=== PATIENT | female | born 1965 | race Caucasian/White ===

== ENCOUNTER 2020-05-22 20:39 | Emergency (ER) | payer OTHER ==
[~2020-05-22] VITALS: Ht 162.6 cm; Wt 76.0 kg
[2020-05-22 20:49] VITALS: BP 144/79
--- NOTE | 2020-05-22 20:52 | NUR ---
CLARISA BAE EVALUATING PT IN TRIAGE ROOM.
--- NOTE | 2020-05-22 20:53 | NUR ---
PT AMBULTED TO BED 7 WITH STEADY GAIT
--- NOTE | 2020-05-22 21:00 | NUR ---
55 Y/O FEMALE C/O BLEEDING ON R SIDE OF MOUTH POST DENTAL PROCEDURE YESTERDAY. PT TAKING PRESBRIBED PENICILLIN. DENIES ANY PAIN. CLOT TO R SIDED JAW NOTED. VSS. MED HX: PRE DM2 RX: PENICLLIN NKA
[2020-05-22 21:22] VITALS: BP 144/79
--- NOTE | 2020-05-22 21:22 | NUR ---
Patient discharged with v/s stable. Written and verbal after care instructions given and explained. Patient verbalized understanding. Ambulatory with steady gait. ID Band Removed. All questions addressed prior to discharge. Advised to follow up with PMD.
== END 2020-05-22 21:22 | disposition home or self-care (01) ==
LOC: MED 20:39
DX: K91.840 Postprocedural hemorrhage of a digestive system organ or structure following a digestive system procedure (principal)
CPT/HCPCS: 99281

== ENCOUNTER 2020-07-20 14:23 | Emergency (ER) | payer OTHER, SELFPAY ==
[~2020-07-20] VITALS: Ht 162.6 cm; Wt 77.1 kg
[2020-07-20 14:55] VITALS: BP 95/49
--- NOTE | 2020-07-20 15:00 | NUR ---
Pt c/o n/v/d, chills, body aches since 07/14.Tested + for covid on 07/14. Denies SOB/chest pain medhx: denies
--- NOTE | 2020-07-20 16:44 | NUR ---
REPEATED BP 109/49, O2 SAT WITH AMB 98%.
[2020-07-20 17:36] VITALS: BP 109/49
--- NOTE | 2020-07-20 17:36 | NUR ---
Patient discharged with v/s stable. Written and verbal after care instructions given and explained. Patient alert, oriented and verbalized understanding of instructions. Ambulatory with steady gait. All questions addressed prior to discharge. ID band removed. Patient advised to follow up with PMD. Rx of PROMETHAZINE, AZITHROMYCIN & TYLENOL given. Patient educated on indication of medication including possible reaction and side effects. Opportunity to ask questions provided and answered.
[2020-07-23] MEDS ORDERED: METF500T PO ×2 (04:10→07:06)
== END 2020-07-20 17:36 | disposition home or self-care (01) ==
LOC: MED 14:23
DX: U07.1 COVID-19 (principal); J12.89 Other viral pneumonia
CPT/HCPCS: 71045; 99283

== ENCOUNTER 2021-08-09 16:57 | Emergency (ER) | payer OTHER, SELFPAY ==
[~2021-08-09] VITALS: Ht 162.6 cm; Wt 76.7 kg
[2021-08-09 17:23] VITALS: BP 178/78
--- NOTE | 2021-08-09 20:08 | NUR ---
RADHA STATED PT LEFT LOBBY 2004
--- NOTE | 2021-08-09 20:08 | NUR ---
PATIENT LEFT WITHOUT BEING SEEN BY DR. ARENAS. NO FURTHER CARE PROVIDED FOR PATIENT.
== END 2021-08-09 20:04 | disposition left against medical advice (07) ==
LOC: MED 16:57
DX: R51.9 Headache, unspecified (principal); M54.50 Low back pain, unspecified; R09.89 Other specified symptoms and signs involving the circulatory and respiratory systems; R05.9 Cough, unspecified; Z53.21 Procedure and treatment not carried out due to patient leaving prior to being seen by health care provider

== ENCOUNTER 2021-09-09 12:29 | Emergency (ER) | payer OTHER, SELFPAY ==
[~2021-09-09] VITALS: Ht 160 cm; Wt 76.2 kg
[2021-09-09 12:31] VITALS: BP 153/85
--- NOTE | 2021-09-09 12:39 | NUR ---
PT AMBULATED TO ER BED 8
--- NOTE | 2021-09-09 13:00 | NUR ---
56 y/o female bib self from home, pt states she had dialysis yesterday and her shunt on her right side began bleeding last night. bleeding controlled with pressure and gauze wrap prior to arrival; pt contacted dialysis center who recommended er evaluation. bleeding remains controlled; denies pain, dizziness, medical complaint. pt reports follow up care scheduled tomorrow. bed locked in lowest position, side rails x 1. pmh: htn, renal disease (tuesday, , tuesday), cancer nka meds: vitamin D, sevelamer
--- NOTE | 2021-09-09 13:11 | NUR ---
R FOREARM FISTULA SECURED BY 2X2 GAUZE AND TAPE; BLEEDING CONTROLLED. COBAN APPLIED WITH +PMSC BEFORE/AFTER.
--- NOTE | 2021-09-09 13:17 | NUR ---
Patient discharged with v/s stable. Written and verbal after care instructions given and explained. Patient verbalized understanding. Ambulatory with steady gait. All questions addressed prior to discharge. Advised to follow up with PMD.
== END 2021-09-09 13:17 | disposition home or self-care (01) ==
LOC: MED 12:29
DX: T81.83XA Persistent postprocedural fistula, initial encounter (principal); E11.22 Type 2 diabetes mellitus with diabetic chronic kidney disease; N18.6 End stage renal disease; Z99.2 Dependence on renal dialysis; Y83.8 Other surgical procedures as the cause of abnormal reaction of the patient, or of later complication, without mention of misadventure at the time of the procedure
CPT/HCPCS: 99281

== ENCOUNTER 2023-04-30 14:17 | Emergency (ER) | payer OTHER ==
[2023-04-30] MEDS ORDERED: ACETAMINOPHEN 325 MG TAB PO ONE (14:35)
[2023-04-30] MEDS ORDERED: diazePAM 5 MG TAB PO ONE (14:35)
[2023-04-30] MEDS ORDERED: NACL 0.9% 250 ML IV ONE (15:10)
[2023-04-30 15:42] LABS: HEMATOCRIT 23.9 % (36-48); MEAN CORPUSCULAR HEMOGLOBIN 31 pg (27-31); MEAN CORPUSCULAR HGB CONC 33 g/dL (33-37); MEAN CORPUSCULAR VOLUME 95.2 fL (80-94); PLATELET COUNT (AUTO) 279 K/uL (140-450); RED BLOOD CELL COUNT(AUTO) 2.51 MIL/uL (4.20-5.40); RED CELL DISTRIBUTION WIDTH 20.3 % (11.6-13.7); WHITE BLOOD COUNT (AUTO) 8.8 K/uL (4.8-10.8)
[2023-04-30 16:03] LABS: HEMOGLOBIN 7.8 g/dL (12.0-16.0)
[2023-04-30 16:06] LABS: ALANINE AMINOTRANSFERASE 13 U/L (12-78); ALBUMIN 2.3 g/dL (3.4-5.0); ALKALINE PHOSPHATASE 77 U/L (50-136); ANION GAP 11.9 (8-16); ASPARTATE AMINOTRANSFERASE 9 U/L (15-37); CALCIUM 9.5 mg/dL (8.5-10.1); CARBON DIOXIDE 30.4 mmol/L (21-32); CHLORIDE 97 mmol/L (98-107); GFR ARICAN-AMERICAN 14 mL/min (>90); GFR NON ARICAN-AMERICAN 12 mL/min (>90); GLUCOSE 101 mg/dL (74-106); POTASSIUM 4.3 mmol/L (3.5-5.1); SODIUM SERUM 135 mmol/L (136-145); TOTAL BILIRUBIN 0.6 mg/dL (0.0-1.0); TOTAL PROTEIN, SERUM 8.7 g/dL (6.4-8.2); UREA NITROGEN, BLOOD 26 mg/dL (7-18)
[2023-04-30 16:08] LABS: CREATININE 4.1 mg/dL (0.6-1.3)
[2023-04-30 16:09] LABS: BASOPHILS % (MANUAL) 1 % (0-2); EOSINOPHILS % (MANUAL) 2 % (0-4); LYMPHOCYTES % (MANUAL) 23 % (20-46); MONOCYTES % (MANUAL) 6 % (5-12)
[2023-04-30 16:10] LABS: PLATELET ESTIMATE ADEQUATE; SMUDGE CELLS FEW
[2023-04-30 16:11] LABS: HYPOCHROMASIA 1+
[2023-04-30] MEDS ORDERED: HYDROcodone/APAP 5/325 MG 1 TAB TAB PO ONE (16:25)
[2023-04-30 16:30] VITALS: O2SAT 97
[2023-04-30] MEDS ORDERED: GABAPENTIN 300 MG CAP PO ONE (17:20)
[2023-04-30 18:07] VITALS: O2SAT 97
[2023-04-30 18:20] VITALS: BP 94/51; PULSE 98; RESP 20
== END 2023-04-30 18:18 | disposition home or self-care (01) ==
LOC: MED 14:17
DX: E11.22 Type 2 diabetes mellitus with diabetic chronic kidney disease (principal); I12.0 Hypertensive chronic kidney disease with stage 5 chronic kidney disease or end stage renal disease; N18.6 End stage renal disease; M79.641 Pain in right hand; M79.642 Pain in left hand; D53.9 Nutritional anemia, unspecified; E11.40 Type 2 diabetes mellitus with diabetic neuropathy, unspecified; Z99.2 Dependence on renal dialysis; Z85.830 Personal history of malignant neoplasm of bone
CPT/HCPCS: 36415; 71045; 80053; 84484; 85025; 93005; 96360; 99285; J7030